=== PATIENT | female | born 1950 | race African-American/Black ===

== ENCOUNTER → 2016-09-15 | Outpatient (CLI) | payer OTHER ==
[~2016-09-15] MED LIST: ASPI81 PO; CLOP75 PO; GLUCTAB PO; LORA-392 PO; LOTR5CAP3 PO; METO50TA PO; PIOG45 PO; RANI150 PO; ROSU20 PO; TOBRA.3%O OS
[2016-09-15 08:51] LABS: AUTOMATED NEUTROPHIL # 2.7 TH/MM3 (1.8-7.7); BASOPHIL % 0.7 % (0.0-2.0); EOSINOPHIL # 0.4 TH/MM3 (0-0.4); EOSINOPHIL % 6.4 % (0.0-4.0); HEMATOCRIT 37.6 % (35.0-46.0); LYMPH % 35.9 % (9.0-44.0); MEAN CORPUSCULAR HEMOGLOBIN 21.6 PG (27.0-34.0); MEAN CORPUSCULAR HGB CONC 31.3 % (32.0-36.0); MONO % 9.1 % (0.0-8.0); NEUT % 47.9 % (16.0-70.0); PLATELET COUNT 341 TH/MM3 (150-450); RED BLOOD COUNT 5.45 MIL/MM3 (4.00-5.30); RED CELL DISTRIBUTION WIDTH 17.4 % (11.6-17.2); WHITE BLOOD COUNT 5.5 TH/MM3 (4.0-11.0)
[2016-09-15 08:53] LABS: HEMO FLAGS AUTO DIFF
[2016-09-15 08:59] LABS: BACTERIA, URINE MOD /hpf; BLOOD, URINE NEG (NEG); GLUCOSE,URINE 1000 mg/dL (NEG); KETONE, URINE TRACE mg/dL (NEG); NITRITE,URINE NEG (NEG); SQUAMOUS EPITHELIAL CELL URINE <1 /hpf (0-5); URINE COLOR LIGHT-YELLOW (YELLW/STRAW)
[2016-09-15 09:26] LABS: ANION GAP 11 MEQ/L (5-15); BICARBONATE 27.2 MEQ/L (21.0-32.0); BLOOD UREA NITROGEN 10 MG/DL (7-18); CHLORIDE 102 MEQ/L (98-107); GLOMERULAR FILTRATION RATE 68 ML/MIN (>89); GLUCOSE,FASTING 383 MG/DL (74-99); HDL CHOLESTEROL 41.9 MG/DL (40.0-60.0); LDL CHOLESTEROL 91 MG/DL (0-99); SODIUM (NA) 140 MEQ/L (136-145)
[2016-09-15 09:39] LABS: SCAN/DIFF AUTO DIFF CONFIRMED
[2016-09-15 19:20] LABS: HEMOGLOBIN A1b 1.9 %
[2016-09-15 19:21] LABS: HEMOGLOBIN F 5.2 %; HEMOGLOBIN LA1C 3.4 %
[2016-09-15 19:22] LABS: HEMOGLOBIN Ao 68.4 %; HEMOGLOBIN P3 5.5 %
== END ==
LOC: ELAB 07:46
PROVIDERS: ATTEND Internal Medicine
DX: E11.9 Type 2 diabetes mellitus without complications (principal); E78.5 Hyperlipidemia, unspecified; D64.9 Anemia, unspecified; I10 Essential (primary) hypertension
CPT/HCPCS: 36415; 80048; 80061; 81001; 83036; 85025; 85027